=== PATIENT | male | born 1960 | race Caucasian/White ===

== ENCOUNTER → 2021-07-03 | Outpatient (CLI) | payer OTHER ==
--- NOTE | 2021-07-03 08:57 | RAD ---
EXAMINATION: US ABDOMEN LIMITED INDICATION: 61 years, Male, Umbilical hernia. COMPARISON: None TECHNIQUE: Limited real-time sonographic evaluation of the periumbilical soft tissue (area of clinica l concern), supplemented by color Doppler. FINDINGS/ IMPRESSION: There is a small umbilical hernia containing fat and loop of bowel, hernia neck measures 1.2 cm and t he hernia sac measures 2.2 cm. Electronically signed by: Meka Zheng MD (07/03/2021 8:55 AM) [id number]
== END ==
LOC: US 07:30
PROVIDERS: ATTEND Nurse Practitioner Family
DX: K42.9 Umbilical hernia without obstruction or gangrene (principal)
CPT/HCPCS: 76705